=== PATIENT | female | born 1990 | race Caucasian/White ===

== ENCOUNTER 2017-12-17 23:13 | Emergency (ER) | payer SELFPAY ==
[~2017-12-17] VITALS: Ht 162.6 cm; Wt 72.6 kg
[2017-12-17 23:45] VITALS: BP 126/62; Ht 162.6 cm; Wt 72.6 kg
== END 2017-12-18 00:20 | disposition left against medical advice (07) ==
LOC: ED 23:13
DX: Z53.21 Procedure and treatment not carried out due to patient leaving prior to being seen by health care provider (principal)